=== PATIENT | male | born 2000 | race Caucasian/White ===

== ENCOUNTER → 2024-01-26 | Outpatient (CLI) | payer OTHER ==
[2024-01-26 16:42] LABS: CALCIUM 10.3 mg/dL (8.3-10.5)
[2024-01-26 16:43] LABS: TOTAL PROTEIN 7.5 g/dL (6.4-8.3)
[2024-01-26 16:44] LABS: BASO # 0.02 K/mm3 (0.02-0.10); EOS # 0.07 K/mm3 (0.04-0.40); EOS % 0.8 % (0.0-4.0); HEMOGLOBIN 14.9 g/dL (13.5-18.0); LYMPH# 1.63 K/mm3 (1.50-4.00); MEAN CELL VOLUME 88 fl (78-100); MEAN CORPUSCULAR HEMOGLOBIN 30 pg (27-31); MEAN CORPUSCULAR HGB CONC 35 g/dL (33-37); NEU # 5.95 K/mm3 (1.40-6.50); PLATELET COUNT 271 K/mm3 (130-400); RED BLOOD COUNT 4.91 M/mm3 (4.20-5.60); RED CELL DISTRIBUTION WIDTH 12.3 % (11.5-14.5); WHITE BLOOD COUNT 8.3 K/mm3 (4.8-10.8)
[2024-01-26 16:45] LABS: TOTAL BILIRUBIN 0.4 mg/dL (0.2-1.2)
[2024-01-26 22:26] LABS: HEPATITIS B CORE AB TOTAL Negative (Negative); HEPATITIS B SURFACE ANTIBODY <2.0 (()); HEPATITIS B SURFACE ANTIGEN Negative (Negative); HEPATITIS C VIRUS ANTIBODY Negative (Negative)
[2024-01-27 15:51] LABS: TB GOLD INTERPRETATION.TB GOLD Negative (Negative)
== END ==
LOC: LAB 15:47
PROVIDERS: Nurse Practitioner Family
DX: L40.0 Psoriasis vulgaris (principal)